=== PATIENT | female | born 1960 | race African-American/Black ===

== ENCOUNTER 2021-08-07 11:01 | Inpatient (IN) | payer OTHER ==
[~2021-08-07] VITALS: Ht 30.5 cm; Wt 34.0 kg
[2021-08-07] MEDS ORDERED: DEXTROSE 50% SYRINGE 50 ML IV ONE (11:09)
[2021-08-07] MEDS ORDERED: D5W/SOD CHLO 0.9% 1,000 ML IV ONE (11:15)
[2021-08-07 12:20] LABS: Red Blood Cells 3.07 10^6/uL (4.0-5.20)
[2021-08-07 12:22] LABS: Hemoglobin 7.4 g/dL (12.2-16.2); Mean Corpuscular Hgb Conc. 30.7 g/dL (32.0-36.0); Mean Corpuscular Volume 78.2 fL (80.0-100.0); White Blood Cell 3.3 10^3/uL (4.4-10.8)
[2021-08-07] MEDS ORDERED: NOREPINEPHRINE 8 MG/250ML KIT 250 ML IV ONE (12:25)
[2021-08-07] MEDS ORDERED: NOREPINEPHRINE 8 MG/250ML KIT 250 ML IV SCH ×2 (12:30→13:30)
[2021-08-07 12:35] LABS: Red Cell Distribution Width 24.2 % (11.8-14.3)
[2021-08-07 12:36] LABS: Basophils % (manual) 0 (0.0-2.0); Blast Cells 0; Eosinophils % (manual) 0 (0-7); Myelocytes % 0; Promyelocytes % 0; Reactive Lymphocytes 0
[2021-08-07 12:44] LABS: Albumin 1.1 g/dL (3.4-5.0); Calcium 6.3 mg/dL (8.5-10.1); Magnesium 3.7 mg/dL (1.6-2.6)
[2021-08-07] MEDS ORDERED: DEXTROSE (50%) 50ML SYRG IV ONE ×3 (12:45→23:45)
[2021-08-07] MEDS ORDERED: SODIUM CHLORIDE 0.9% 1,000 ML IV ONE (12:45)
[2021-08-07 12:46] LABS: INR 2.73 (0.9-1.15); Partial Thromboplastin Time 48.4 sec (23.6-33.0)
[2021-08-07 12:48] LABS: Lactic Acid w/Reflex 4.2 mmol/L (0.4-2.0)
[2021-08-07 12:52] LABS: BUN/Creatinine Ratio 94.5; Bilirubin, Total 0.7 mg/dL (0.2-1.0); Total Protein 2.8 g/dL (6.4-8.2)
[2021-08-07 13:07] LABS: Potassium 7.1 mmol/L (3.5-5.1)
[2021-08-07] MEDS ORDERED: SODIUM BICARBONATE 8.4% INJ 50ML SYRINGE IV ONE (13:30)
[2021-08-07] MEDS ORDERED: MORPHINE SULFATE 4 MG/ML SYR/VIAL IV PRN (13:30)
[2021-08-07] MEDS ORDERED: ONDANSETRON HCL 4 MG/2 ML VIAL IV PRN (13:30)
[2021-08-07] MEDS ORDERED: InsuLIN REG 1unit/0.01ml Soln (100units/ml) IV ONE (13:30)
[2021-08-07] MEDS ORDERED: CALCIUM GLUC 1,000mg/50ml-NS 50 ML IV ONE (13:30)
[2021-08-07] MEDS ORDERED: NITROGLYCERIN 0.4 MG SL TAB SL PRN (13:30)
[2021-08-07 13:38] LABS: Band Neutrophils % (manual) 1; Lymphocytes % (manual) 15 (10.0-50.0); Metamyelocytes % 3; Monocytes % (manual) 2 (0-12)
[2021-08-07] MEDS ORDERED: cefTRIAXone 1GM/50ML D5W 50 ML IV ONE (13:45)
[2021-08-07] MEDS ORDERED: AZITHROMYCIN 500MG/ 250ML 250 ML IV ONE (13:45)
[2021-08-07 14:50] LABS: Cholesterol 61 mg/dL (< 200)
[2021-08-07 14:53] LABS: HDL Cholesterol 53 mg/dL (40-59); LDL Cholesterol 23 mg/dL (< 100)
[2021-08-07 15:29] LABS: Triglycerides < 2 mg/dL (< 150)
[2021-08-07] MEDS ORDERED: IPRATROPIUM BROM 0.5 MG/2.5ML INH SOL NEB PRN ×2 (15:45→20:30)
[2021-08-07] MEDS ORDERED: ALBUTEROL SULF 2.5 MG/0.5ML(0.5%) NEB SOLN NEB PRN ×2 (15:45→20:30)
[2021-08-07 15:57] LABS: Anion Gap 9 (5-15); BUN/Creatinine Ratio 97.4; Calcium 6.6 mg/dL (8.5-10.1); Carbon Dioxide 28 mmol/L (21-32); Chloride 96 mmol/L (98-107); GFR African American 62 mL/min; GFR Non-African American 51 mL/min; Glucose 177 mg/dL (74-106); Sodium 133 mmol/L (136-145)
[2021-08-07 16:00] LABS: Potassium 5.8 mmol/L (3.5-5.1)
[2021-08-07 16:01] LABS: Blood Urea Nitrogen 112 mg/dL (7-18)
[2021-08-07 16:13] VITALS: BP 113/75
[2021-08-07] MEDS: SODIUM CHLORIDE 0.9% 1,000 ML IV SCH (17:13)
[2021-08-07] MEDS: FUROSEMIDE 20 MG/2 ML VIAL IV SCH (19:00)
[2021-08-07 20:32] LABS: Urine Bacteria FEW /hpf (None Seen); Urine Blood 3+ /uL (Negative); Urine Hyaline Cast FEW /lpf (0 - 2); Urine Specific Gravity 1.009 (1.001-1.035); Urine WBC 2 /hpf (0 - 5)
[2021-08-07 20:43] LABS: Alcohol, Urine < 3.0 mg/dL (0-10); Amphetamine Screen, Urine NEGATIVE (NEGATIVE); Barbiturate Scree,Urine NEGATIVE (NEGATIVE); Benzodiazephine Screen, Urine NEGATIVE (NEGATIVE); Cannabinoid Screen, Urine NEGATIVE (NEGATIVE); Cocaine Screen, Urine NEGATIVE (NEGATIVE); Opiate Scree,Urine NEGATIVE (NEGATIVE); Phencyclidine Screen, Urine NEGATIVE (NEGATIVE)
[2021-08-08] MEDS: SODIUM CHLORIDE 0.9% 1,000 ML IV SCH (02:50)
[2021-08-08 04:53] LABS: Basophils # (auto) 0 10 ^3/uL (0-0.2); Basophils % (auto) 0.8 % (0.0-2.0); Eosinophils # (auto) 0 10 ^3/uL (0-0.8); Eosinophils % (auto) 0.5 % (0.0-7.0); Hematocrit 28.2 % (36.0-46.0); Hemoglobin 8.7 g/dL (12.2-16.2); Lymphocytes # (auto) 0.1 10 ^3/uL (0.4-5.4); Lymphocytes % (auto) 3.2 % (10.0-50.0); Mean Corpuscular Hemoglobin 23.8 pg (28.0-32.0); Mean Corpuscular Hgb Conc. 30.8 g/dL (32.0-36.0); Mean Corpuscular Volume 77.2 fL (80.0-100.0); Monocytes # (auto) 0.1 10 ^3/uL (0-1.3); Monocytes % (auto) 2.2 % (0.0-12.0); Neutrophils # (auto) 3.1 10 ^3/uL (1.6-8.6); Neutrophils % (auto) 93.3 % (37.0-80.0); Nucleated Red Blood Cells % 0.2 %; Red Blood Cells 3.66 10^6/uL (4.0-5.20); White Blood Cell 3.4 10^3/uL (4.4-10.8)
[2021-08-08 04:59] LABS: Red Cell Distribution Width 23.4 % (11.8-14.3)
[2021-08-08] MEDS: FUROSEMIDE 20 MG/2 ML VIAL IV SCH (06:00)
[2021-08-08] MEDS ORDERED: cefTRIAXone 1GM/50ML D5W 50 ML IV SCH (09:00)
[2021-08-08 09:17] LABS: Albumin 1.4 g/dL (3.4-5.0); BUN/Creatinine Ratio 106.8; Bilirubin, Total 1.2 mg/dL (0.2-1.0); Calcium 6.5 mg/dL (8.5-10.1); Total Protein 3.6 g/dL (6.4-8.2)
[2021-08-08] MEDS ORDERED: DEXTROSE 10% 1,000 ML IV ONE ×2 (09:36→11:59)
[2021-08-08] MEDS ORDERED: AZITHROMYCIN 500MG/ 250ML 250 ML IV SCH (10:00)
[2021-08-08] MEDS ORDERED: ENOXAPARIN SOD 30 MG/0.3 ML SYRINGE SC SCH (10:00)
[2021-08-08 10:45] VITALS: BP 97/62
[2021-08-08] MEDS ORDERED: SODIUM ZIRCONIUM CYCL 10 GM PAK PO ONE (10:45)
[2021-08-08] MEDS ORDERED: FUROSEMIDE INJECTION 100 MG in SODIUM CHL 0.9% 100 ML IV SCH (10:45)
[2021-08-08] MEDS ORDERED: ALBUTEROL SULF 2.5 MG/0.5ML(0.5%) NEB SOLN NEB ONE (10:45)
[2021-08-08] MEDS ORDERED: CALCIUM GLUC 1,000mg/50ml-NS 50 ML IV ONE (10:45)
[2021-08-08] MEDS ORDERED: SODIUM BICARBONATE 8.4 % INJ 50ML VIAL IV ONE (10:45)
[2021-08-08 11:15] VITALS: BP 86/46
[2021-08-08 12:15] VITALS: BP 77/46
[2021-08-08] MEDS ORDERED: VASOPRESSIN 50 UNITS in D5W 5% 247.5 ML IV SCH (12:15)
[2021-08-08] MEDS ORDERED: DEXTROSE 50% SYRINGE 50 ML IV ONE (12:23)
[2021-08-08] MEDS ORDERED: ALBUMIN 25% 100 ML IV ONE (12:28)
[2021-08-08] MEDS ORDERED: ALBUTEROL SULF 2.5 MG/0.5ML(0.5%) NEB SOLN NEB SCH (12:30)
[2021-08-08] MEDS ORDERED: MORPHINE SULFATE 4 MG/ML SYR/VIAL IV PRN (12:30)
[2021-08-08] MEDS ORDERED: PHENYLEPHRINE IV 250 ML IV SCH (12:30)
[2021-08-08] MEDS ORDERED: LORazepam 2MG/ML-1ML VIAL IV PRN (12:30)
[2021-08-08] MEDS ORDERED: ALBUMIN 25% 100 ML IV SCH (12:30)
[2021-08-08 13:15] VITALS: BP 133/105
[2021-08-08 13:30] VITALS: BP 132/105
[2021-08-08] MEDS ORDERED: SODIUM ZIRCONIUM CYCL 10 GM PAK PO SCH (17:00)
[2021-08-08] MEDS ORDERED: ATROPINE SULF 1 MG/10ml SYR IM ONE (17:44)
[2021-08-08] MEDS ORDERED: EPINEPHrine HCL 1 MG/10 ML SYRG IV ONE (17:44)
[2021-08-08] MEDS ORDERED: CALCIUM CHLOR(10%) 100MG/ML 10ML SYRINGE IV ONE (17:44)
[2021-08-08] MEDS ORDERED: IPRATROPIUM BROM 0.5 MG/2.5ML INH SOL NEB SCH (18:00)
== END 2021-08-08 20:12 | DRG 70 ==
LOC: ER 11:01 → EDBD 11:01 → TELE 13:24 → UNDOADMIN 13:24 → ICU WEST 13:33 → TELE 23:59 → ICU WEST 08-08 08:54
PROVIDERS: ADMIT Registered Nurse; ATTEND Registered Nurse
PROC: 5A12012 Performance of Cardiac Output, Single, Manual (ICD-10-PCS; principal; 2021-08-08)
DX: G93.41 Metabolic encephalopathy (principal); J96.21 Acute and chronic respiratory failure with hypoxia; K72.00 Acute and subacute hepatic failure without coma; N17.0 Acute kidney failure with tubular necrosis; E87.1 Hypo-osmolality and hyponatremia; J90 Pleural effusion, not elsewhere classified; R57.9 Shock, unspecified; C55 Malignant neoplasm of uterus, part unspecified; I46.9 Cardiac arrest, cause unspecified; Z20.822 Contact with and (suspected) exposure to COVID-19; D64.9 Anemia, unspecified; E16.2 Hypoglycemia, unspecified; E87.5 Hyperkalemia; E88.09 Other disorders of plasma-protein metabolism, not elsewhere classified; Z51.5 Encounter for palliative care; Z85.42 Personal history of malignant neoplasm of other parts of uterus; Z90.710 Acquired absence of both cervix and uterus; Z92.21 Personal history of antineoplastic chemotherapy
CPT/HCPCS: 36415; 36600; 70450; 71045; 80048; 80053; 80061; 80307; 81001; 82805; 82962; 83036; 83605; 83735; 84484; 85007; 85025; 85027; 85610; 85730; 86850; 86900; 86901; 87040; 87426; 92610; 92950; 93005; 93306; 93886; 94002; 96365; 99291; G0378; J0696; J7060; P9047